=== PATIENT | female | born 1990 | race Caucasian/White ===

== ENCOUNTER 2023-05-15 08:15 | Emergency (ER) | payer MEDICAID ==
[~2023-05-15] VITALS: Ht 157.5 cm; Wt 58.5 kg
[2023-05-15 08:22] VITALS: BP_SYST 118; PULSE 77; RESP 18; TEMP 97.9; O2SAT 97
[2023-05-15] MEDS ORDERED: LIDOCAINE 1%, 20 ML MDV 20 ML ONE (08:27)
[2023-05-15] MEDS ORDERED: DIPHTH,PERTUSS(ACELL),TET VAC 0.5 ML VIAL (Tdap) I.M. ONE (08:30)
[2023-05-15] MEDS ORDERED: LIDOCAINE 1% 10 MG/ML, 20 ML MDV INJ ONE (08:30)
[2023-05-15] MEDS ORDERED: IBUP-1971 PO (08:36)
== END 2023-05-15 09:00 | disposition home or self-care (01) ==
LOC: SED 08:15
DX: L60.0 Ingrowing nail (principal); M79.674 Pain in right toe(s); Z79.899 Other long term (current) drug therapy
CPT/HCPCS: 99284; 90715; 90471; 11730; J2001

== ENCOUNTER 2024-06-17 22:08 | Emergency (ER) | payer MEDICAID ==
[~2024-06-17] VITALS: Ht 157.5 cm; Wt 59.0 kg
[~2024-06-17 22:08] MED LIST: IBUP-1971 PO
[2024-06-17 22:17] VITALS: BP_SYST 126; PULSE 85; RESP 18; TEMP 97.8; O2SAT 97
[2024-06-17 23:11] LABS: BILIRUBIN,URINE NEGATIVE (NEGATIVE); BLOOD, URINE 2+ (NEGATIVE); CLARITY/URINE SL CLOUDY (CLEAR); COLOR,URINE YELLOW (YELLOW); GLUCOSE,URINE TRACE (NEGATIVE); KETONES,URINE NEGATIVE (NEGATIVE); LEUKOCYTE ESTERASE ,URINE 2+ (NEGATIVE); NITRITE, URINE POSITIVE (NEGATIVE); PROTEIN URINE 3+ (NEGATIVE)
[2024-06-17 23:33] LABS: BACTERIA,URINE MODERATE /HPF (None Seen)
[2024-06-18] MEDS: cefTRIAXone 1 GM in LIDOCAINE 1%, 20 ML MDV 2.1 ML IM ONE (00:26)
[2024-06-18] MEDS: KETOROLAC TROMETHAMINE 60 MG/2 ML VIAL IM ONE (00:28)
[2024-06-18] MEDS ORDERED: NAPR-1172 PO (00:50)
[2024-06-18] MEDS ORDERED: NITR-85 PO (00:50)
[2024-06-18 00:55] VITALS: BP_SYST 126; PULSE 85; RESP 18; TEMP 97.8; O2SAT 97
== END 2024-06-18 00:53 | disposition home or self-care (01) ==
LOC: SED 22:08
DX: N39.0 Urinary tract infection, site not specified (principal); R10.9 Unspecified abdominal pain; Z79.899 Other long term (current) drug therapy; Z79.2 Long term (current) use of antibiotics
CPT/HCPCS: 99284; 81001; 87086; 96372; J0696; J1885; J2003; 81000; 81015